=== PATIENT | male | born 1985 | race Caucasian/White ===

== ENCOUNTER 2016-07-08 11:08 | Emergency (ER) | payer OTHER | END 2016-07-08 13:20 | disposition home or self-care (01) | LOC: ER1 11:08 | DX: S09.90XA Unspecified injury of head, initial encounter (principal); F39 Unspecified mood [affective] disorder; F17.210 Nicotine dependence, cigarettes, uncomplicated; W19.XXXA Unspecified fall, initial encounter; Y92.009 Unspecified place in unspecified non-institutional (private) residence as the place of occurrence of the external cause | CPT/HCPCS: 70450; 99284 ==